=== PATIENT | female | born 1990 | race African-American/Black ===

== ENCOUNTER 2017-11-27 15:49 | Emergency (ER) | payer OTHER ==
[~2017-11-27] VITALS: Ht 170.2 cm; Wt 104.3 kg
[~2017-11-27 15:49] MED LIST: CLON1TAB1 PO; IBUP-2218 PO
[2017-11-27 16:00] VITALS: BP 145/68
--- NOTE | 2017-11-27 17:18 | NUR ---
PATIENT PRESENTS TO ED WITH LEFT LOWER JAW PAIN . PT STATES . DENIES N/V/D; SKIN IS PINK/WARM/DRY; AAOX4 WITH EVEN AND STEADY GAIT; LUNGS CLEAR BL; HR EVEN AND REGULAR; PT DENIES ANY FEVER, CP, SOB, OR COUGH AT THIS TIME; PATIENT STATES PAIN OF 10/10 AT THIS TIME; VSS; PATIENT POSITIONED FOR COMFORT; HOB ELEVATED; BEDRAILS UP X2; BED DOWN. ER MD MADE AWARE OF PT STATUS.
--- NOTE | 2017-11-27 17:19 | NUR ---
MD SPEAKING WITH PT
[2017-11-27] MEDS ORDERED: AMOXIL/CLAVULANATE 875/125 MG 1 TAB PO ONE (17:20)
[2017-11-27] MEDS ORDERED: oxyCODONE/APAP 5/325 MG 1 TAB TAB PO ONE (17:20)
--- NOTE | 2017-11-27 17:38 | NUR ---
NO AUGMENTIN IN OUR UNIT----HOUSE SUP NOTIFIED , LEMUEL WILL LOOK IN OTHER UNITS---PHARMACY NOT IN HOUSE
[2017-11-27] MEDS ORDERED: AMOXIL/CLAVULANATE 875/125 MG 1 TAB ONE (17:53)
[2017-11-27 18:13] VITALS: BP 138/84
--- NOTE | 2017-11-27 18:13 | NUR ---
Patient discharged with v/s stable. Written and verbal after care instructions given and explained. Patient alert, oriented and verbalized understanding of instructions. Ambulatory with steady gait. All questions addressed prior to discharge. ID band removed. Patient advised to follow up with PMD. Rx of PERCOCET/AUGMENTIN given. Patient educated on indication of medication including possible reaction and side effects. Opportunity to ask questions provided and answered.
--- NOTE | 2017-11-27 18:14 | NUR ---
MD SPEAKING WITH PT
== END 2017-11-27 18:13 | disposition home or self-care (01) ==
LOC: MED 15:49 → EDBD 15:49 → MED 18:13
DX: K04.7 Periapical abscess without sinus (principal); Z79.899 Other long term (current) drug therapy
CPT/HCPCS: 99283

== ENCOUNTER 2018-04-02 13:55 | Emergency (ER) | payer OTHER ==
[~2018-04-02] VITALS: Ht 170.2 cm; Wt 88.5 kg
[2018-04-02 14:08] VITALS: BP 152/89
[2018-04-02] MEDS ORDERED: NACL 0.9% 1,000 ML IV ONE (14:59)
[2018-04-02] MEDS ORDERED: diphenhydrAMINE 50 MG/ML VIAL IVP ONE (15:00)
--- NOTE | 2018-04-02 15:31 | NUR ---
PATIENT PRESENTS TO ED WITH anxiety off medications . PT STATES . DENIES N/V/D; SKIN IS PINK/WARM/DRY; AAOX4 WITH EVEN AND STEADY GAIT; LUNGS CLEAR BL; HR EVEN AND REGULAR; PT DENIES ANY FEVER, CP, SOB, OR COUGH AT THIS TIME; PATIENT STATES PAIN OF 0/10 AT THIS TIME; VSS; PATIENT POSITIONED FOR COMFORT; HOB ELEVATED; BEDRAILS UP X2; BED DOWN. ER MD MADE AWARE OF PT STATUS.
[2018-04-02 15:36] LABS: BASOPHILS % (AUTO) 0.5 % (0.0-2.0); EOSINOPHILS # (AUTO) 0.2 K/uL (0-0.4); EOSINOPHILS % (AUTO) 3.6 % (0.0-4.0); HEMATOCRIT 36.7 % (36-48); HEMOGLOBIN 11.9 g/dL (12.0-16.0); LYMPHOCYTES # (AUTO) 1.5 K/uL (2.5-16.5); MEAN CORPUSCULAR HEMOGLOBIN 29 pg (27-31); MEAN CORPUSCULAR HGB CONC 33 g/dL (33-37); MEAN CORPUSCULAR VOLUME 87.7 fL (80-94); MONOCYTES # (AUTO) 0.6 K/uL (0.8-1.0); MONOCYTES % (AUTO) 9.8 % (1.7-9.3); NEUTROPHILS % (AUTO) 62.1 % (42.2-75.2); PLATELET COUNT (AUTO) 282 K/uL (140-450); RED BLOOD CELL COUNT(AUTO) 4.18 MIL/uL (4.20-5.40); WHITE BLOOD COUNT (AUTO) 6.4 K/uL (4.8-10.8)
[2018-04-02 15:58] LABS: ASPARTATE AMINOTRANSFERASE 20 U/L (15-37); CARBON DIOXIDE 30.2 mmol/L (21-32); CHLORIDE 102 mmol/L (98-107); CREATININE 0.7 mg/dL (0.6-1.3); GFR ARICAN-AMERICAN 126 mL/min (>90); GLUCOSE 86 mg/dL (74-106); POTASSIUM 4.2 mmol/L (3.5-5.1); SODIUM SERUM 142 mmol/L (136-145); TOTAL BILIRUBIN 0.3 mg/dL (0.0-1.0); UREA NITROGEN, BLOOD 9 mg/dL (7-18)
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
[2018-04-02 16:51] LABS: APPEARANCE,URINE CLEAR (CLEAR); BILIRUBIN,URINE NEGATIVE (NEGATIVE); BLOOD, URINE NEGATIVE (NEGATIVE); COLOR,URINE YELLOW (YELLOW); LEUKOCYTE ESTERASE ,URINE TRACE (NEGATIVE); NITRITE, URINE NEGATIVE (NEGATIVE); PH,URINE 8.5 (5.0-9.0); UGLUCOSE NEGATIVE (NEGATIVE)
[2018-04-02 16:52] LABS: RBC,URINE 0-5 (RARE) /HPF (0-5); WBC,URINE 0-5 (RARE) /HPF (0-5)
--- NOTE | 2018-04-02 16:57 | NUR ---
Patient discharged with v/s stable. Written and verbal after care instructions given and explained. Patient alert, oriented and verbalized understanding of instructions. Ambulatory with steady gait. All questions addressed prior to discharge. ID band removed. Patient advised to follow up with PMD. Rx of vistaril given. Patient educated on indication of medication including possible reaction and side effects. Opportunity to ask questions provided and answered.
[2018-04-02 17:00] LABS: BARBITURATE, URINE NEG. ng/ml (NEG <=200); BENZODIAZEPINE, URINE NEG. ng/mL (NEG <=200); CANNABINOID, URINE POS. ng/mL (NEG <=50); COCAINE, URINE NEG. ng/mL (NEG <=300); OPIATE, URINE POS. ng/mL (NEG <=2000); PHENCYCLIDINE SCREEN,URINE NEG. ng/mL (NEG <=25)
[2018-04-02 17:31] VITALS: BP 134/75
== END 2018-04-02 16:57 | disposition home or self-care (01) ==
LOC: MED 13:55
DX: F41.1 Generalized anxiety disorder (principal); F19.10 Other psychoactive substance abuse, uncomplicated; Z79.899 Other long term (current) drug therapy
CPT/HCPCS: 36415; 80053; 80305; 81001; 81025; 84484; 85025; 93005; 96374; 99285; G0482; J1200

== ENCOUNTER 2018-11-02 01:50 | Emergency (ER) | payer OTHER ==
[~2018-11-02] VITALS: Ht 167.6 cm; Wt 93.0 kg
--- NOTE | 2018-11-02 01:56 | NUR ---
PT TAKEN TO BED 6
[2018-11-02 02:04] VITALS: BP 118/76
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
[2018-11-02] MEDS ORDERED: clonazePAM 0.5 MG TAB PO ONE (02:30)
[2018-11-02 02:45] VITALS: BP 118/76
--- NOTE | 2018-11-02 02:45 | NUR ---
Patient discharged with v/s stable. Written and verbal after care instructions given and explained. Patient alert, oriented and verbalized understanding of instructions. Ambulatory with steady gait. All questions addressed prior to discharge. ID band removed. Patient advised to follow up with PMD. Rx of CLONAZEPAM given. Patient educated on indication of medication including possible reaction and side effects. Opportunity to ask questions provided and answered.
== END 2018-11-02 02:45 | disposition home or self-care (01) ==
LOC: MED 01:50
DX: F41.9 Anxiety disorder, unspecified (principal); Z76.0 Encounter for issue of repeat prescription; Z79.1 Long term (current) use of non-steroidal anti-inflammatories (NSAID); Z79.899 Other long term (current) drug therapy
CPT/HCPCS: 99283

== ENCOUNTER 2018-11-22 12:44 | Emergency (ER) | payer OTHER ==
[~2018-11-22] VITALS: Ht 170.2 cm; Wt 90.7 kg
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
[2018-11-22 12:54] VITALS: BP 83/36
[2018-11-22 14:15] LABS: BASOPHILS % (AUTO) 0.7 % (0.0-2.0); EOSINOPHILS # (AUTO) 0.3 K/uL (0-0.4); EOSINOPHILS % (AUTO) 6.1 % (0.0-4.0); HEMATOCRIT 33.7 % (36-48); LYMPHOCYTES % (AUTO) 21.2 % (20.5-51.1); MEAN CORPUSCULAR HEMOGLOBIN 30 pg (27-31); MEAN CORPUSCULAR HGB CONC 33 g/dL (33-37); MEAN CORPUSCULAR VOLUME 90.4 fL (80-94); MONOCYTES # (AUTO) 0.4 K/uL (0.8-1.0); MONOCYTES % (AUTO) 9.2 % (1.7-9.3); NEUTROPHILS % (AUTO) 62.8 % (42.2-75.2); PLATELET COUNT (AUTO) 277 K/uL (140-450); RED BLOOD CELL COUNT(AUTO) 3.72 MIL/uL (4.20-5.40); RED CELL DISTRIBUTION WIDTH 17.6 % (11.6-13.7); WHITE BLOOD COUNT (AUTO) 4.8 K/uL (4.8-10.8)
[2018-11-22 14:29] LABS: APPEARANCE,URINE CLEAR (CLEAR); BILIRUBIN,URINE NEGATIVE (NEGATIVE); BLOOD, URINE 2+ (NEGATIVE); COLOR,URINE YELLOW (YELLOW); LEUKOCYTE ESTERASE ,URINE NEGATIVE (NEGATIVE); NITRITE, URINE NEGATIVE (NEGATIVE); UGLUCOSE NEGATIVE (NEGATIVE)
[2018-11-22 14:38] LABS: WBC,URINE 0-5 /HPF (0-5)
[2018-11-22 14:43] LABS: ALBUMIN 3.4 g/dL (3.4-5.0); ANION GAP 12.8 (8-16); CARBON DIOXIDE 27.2 mmol/L (21-32); CREATININE 0.7 mg/dL (0.6-1.3); TOTAL BILIRUBIN 0.3 mg/dL (0.0-1.0)
--- NOTE | 2018-11-22 15:15 | NUR ---
PT C/O BODYACHE PAIN 05/09, MADE AWARE NO NEW ORDERS AT THIS TIME. VSS.
[2018-11-22] MEDS ORDERED: KETOROLAC 30 MG/ML VIAL IM ONE (15:45)
--- NOTE | 2018-11-22 15:57 | NUR ---
PAIN AND ALLERGY MEDICATION ADMINISTERED ORDERED BY MD. WILL CONTINUE TO MONITOR CLOSELY.
--- NOTE | 2018-11-22 16:29 | NUR ---
PT VERBALIZED A DECREASE IN PAIN LEVEL 5/10. NO ADVERSE SIDE EFFECTS NOTED. VSS.
[2018-11-22 16:45] VITALS: BP 121/71
--- NOTE | 2018-11-22 16:45 | NUR ---
Patient discharged with v/s stable. Written and verbal after care instructions given and explained. Patient alert, oriented and verbalized understanding of instructions. Ambulatory with steady gait. All questions addressed prior to discharge. ID band removed. Patient advised to follow up with PMD. Rx of benadryl and motrin given. Patient educated on indication of medication including possible reaction and side effects. Opportunity to ask questions provided and answered.
== END 2018-11-22 16:45 | disposition home or self-care (01) ==
LOC: MED 12:44
DX: R21 Rash and other nonspecific skin eruption (principal); R19.7 Diarrhea, unspecified; R52 Pain, unspecified; F31.9 Bipolar disorder, unspecified; F41.9 Anxiety disorder, unspecified; Z79.899 Other long term (current) drug therapy; Z79.1 Long term (current) use of non-steroidal anti-inflammatories (NSAID)
CPT/HCPCS: 36415; 80053; 81001; 81025; 85025; 87804; 96372; 99283; J1885; Q0163

== ENCOUNTER 2018-12-05 20:21 | Emergency (ER) | payer OTHER ==
[~2018-12-05] VITALS: Ht 167.6 cm; Wt 90.7 kg
[2018-12-05 20:31] VITALS: BP 108/72
--- NOTE | 2018-12-05 20:40 | NUR ---
PT AMBULATED W/ STEADY GATE BY FRIEND; VSS. PT ACTING APPROPRIATLY
[2018-12-05] MEDS ORDERED: [UNRECOGNIZED DRUG - CODE] PO (20:45)
--- NOTE | 2018-12-05 23:41 | NUR ---
PT WAS CALLED FOR RE-EVALUATION, NO RESPONSE, LWBS
--- NOTE | 2018-12-05 23:55 | NUR ---
PATIENT LEFT WITHOUT BEING SEEN BY DR. MORGAN. NO FURTHER CARE PROVIDED FOR PATIENT.
--- NOTE | 2018-12-05 23:55 | NUR ---
PT WAS CALLED FOR RE-EVALUATION, NO RESPONSE X 2, LWBS
== END 2018-12-05 23:41 | disposition left against medical advice (07) ==
LOC: MED 20:21
DX: R07.0 Pain in throat (principal); R21 Rash and other nonspecific skin eruption; Z53.21 Procedure and treatment not carried out due to patient leaving prior to being seen by health care provider

== ENCOUNTER 2019-03-19 23:30 | Emergency (ER) | payer OTHER ==
[~2019-03-19] VITALS: Ht 167.6 cm; Wt 90.7 kg
[~2019-03-19 23:30] MED LIST changes: +[UNRECOGNIZED DRUG - CODE] PO
[2019-03-19 23:41] VITALS: BP 141/95
--- NOTE | 2019-03-19 23:50 | NUR ---
EKG PERFORMED IN TRIAGE ROOM
--- NOTE | 2019-03-20 01:57 | NUR ---
PT AMBULATED TO BED
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
[2019-03-20] MEDS ORDERED: KETOROLAC 30 MG/ML VIAL IM ONE (02:40)
[2019-03-20] MEDS ORDERED: LORazepam 1 MG TAB PO ONE (02:40)
--- NOTE | 2019-03-20 02:40 | NUR ---
PT STATED THAT HER GRANDMOTHER WILL PICK HER UP
--- NOTE | 2019-03-20 03:14 | NUR ---
Patient discharged with v/s stable. Written and verbal after care instructions given and explained. Patient alert, oriented and verbalized understanding of instructions. Ambulatory with steady gait. All questions addressed prior to discharge. ID band removed. Patient advised to follow up with PMD. Rx of ATARAX, MOTRIN given. Patient educated on indication of medication including possible reaction and side effects. Opportunity to ask questions provided and answered.
[2019-03-20 03:15] VITALS: BP 137/63
== END 2019-03-20 03:15 | disposition home or self-care (01) ==
LOC: MED 23:30
DX: F41.9 Anxiety disorder, unspecified (principal); F16.10 Hallucinogen abuse, uncomplicated; Z79.1 Long term (current) use of non-steroidal anti-inflammatories (NSAID); Z79.899 Other long term (current) drug therapy
CPT/HCPCS: 93005; 96372; 99283; J1885

== ENCOUNTER 2019-08-04 07:54 | Emergency (ER) | payer SELFPAY ==
[~2019-08-04] VITALS: Ht 167.6 cm; Wt 93.0 kg
[2019-08-04 08:00] VITALS: BP 118/78
--- NOTE | 2019-08-04 08:03 | NUR ---
Patient ambulated to bed 5.
--- NOTE | 2019-08-04 08:07 | NUR ---
29 Y/O F C/O NEEDING MEDICAITON REFILLS. PATIENT STATES SHE IS OUT OF HER ANXIETY MEDICATION AND IS BEGINING TO FEEL ANXIOUS. PATIENT DENEIES WANTING TO HURT HERSELF. MEDHX: ANXIETY KNA RS: LORAZEPAM, LAMOTIGEN, TEMAZEPAM
--- NOTE | 2019-08-04 08:10 | NUR ---
EVALUATING PATIENT AT [facility]
--- NOTE | 2019-08-04 08:15 | NUR ---
Patient discharged with v/s stable. Written and verbal after care instructions given and explained. Patient alert, oriented and verbalized understanding of instructions. Ambulatory with steady gait. All questions addressed prior to discharge. ID band removed. Patient advised to follow up with PMD. Rx of LAMOTRIGINE 25 MG given. Patient educated on indication of medication including possible reaction and side effects. Opportunity to ask questions provided and answered.
[2019-08-04 08:16] VITALS: BP 118/78
== END 2019-08-04 08:15 | disposition home or self-care (01) ==
LOC: MED 07:54
DX: F41.9 Anxiety disorder, unspecified (principal); F32.9 Major depressive disorder, single episode, unspecified; Z76.0 Encounter for issue of repeat prescription; Z79.899 Other long term (current) drug therapy; Z98.84 Bariatric surgery status
CPT/HCPCS: 99283

== ENCOUNTER 2019-09-02 02:19 | Emergency (ER) | payer SELFPAY ==
[~2019-09-02] VITALS: Ht 167.6 cm; Wt 93.0 kg
[2019-09-02 02:20] VITALS: BP 134/76
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
[2019-09-02 02:49] VITALS: BP 134/76
--- NOTE | 2019-09-02 02:49 | NUR ---
PREBOOK Patient discharged with v/s stable. Written and verbal after care instructions given and explained. Patient verbalized understanding. PT WAS Ambulatory [facility] with in custody. All questions addressed prior to discharge. Advised to follow up with PMD.
== END 2019-09-02 02:49 ==
LOC: MED 02:19
DX: F10.10 Alcohol abuse, uncomplicated (principal); Z02.89 Encounter for other administrative examinations; V89.2XXA Person injured in unspecified motor-vehicle accident, traffic, initial encounter; Y93.89 Activity, other specified; Y92.89 Other specified places as the place of occurrence of the external cause; Y99.8 Other external cause status
CPT/HCPCS: 99283

== ENCOUNTER 2020-10-14 11:51 | Emergency (ER) | payer OTHER ==
[~2020-10-14] VITALS: Ht 170.2 cm; Wt 109.3 kg
[2020-10-14 12:01] VITALS: BP 118/91
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
--- NOTE | 2020-10-14 13:27 | NUR ---
PT REMAINS IN PAIN. ERMD AWARE.
[2020-10-14] MEDS ORDERED: HYDROcodone/APAP 5/325 MG 1 TAB TAB PO ONE (13:55)
[2020-10-14] MEDS ORDERED: KETOROLAC 30 MG/ML VIAL IM ONE (13:55)
--- NOTE | 2020-10-14 14:40 | NUR ---
PT IN BED, CALM. NO APPARENT DISTRESS.
--- NOTE | 2020-10-14 14:45 | NUR ---
PER PATIENT, GRANDMOTHER WILL PICK HER UP FROM HOSPITAL AT D/C
[2020-10-14 14:48] VITALS: BP 135/84
--- NOTE | 2020-10-14 14:52 | NUR ---
Patient discharged with v/s stable. Written and verbal after care instructions ABOUT PAIN MEDICINE INSTRUCTIONS AND SUTURED WOUND CARE given and explained. Patient alert, oriented and verbalized understanding of instructions. Ambulatory with steady gait. All questions addressed prior to discharge. ID band removed. Patient advised to follow up with PMD. Rx of NORCO given. Patient educated on indication of medication including possible reaction and side effects. Opportunity to ask questions provided and answered.
== END 2020-10-14 14:52 | disposition home or self-care (01) ==
LOC: MED 11:51
DX: T81.9XXA Unspecified complication of procedure, initial encounter (principal); M79.10 Myalgia, unspecified site; F41.9 Anxiety disorder, unspecified; Z98.84 Bariatric surgery status; Z79.899 Other long term (current) drug therapy
CPT/HCPCS: 96372; 99285; J1885